=== PATIENT | female | born 1985 | race Caucasian/White ===

== ENCOUNTER → 2016-11-03 | Day surgery (SDC) | payer OTHER ==
[2016-10-31 09:40] VITALS: BMI 34.2
--- NOTE | 2016-11-02 08:32 | SC.ANESEVA ---
Anesthesia Eval & Plan ([facility]) - Providers Surgeon:: Hermes Mars - Medications/Allergies Allergies: Allergies codeine Allergy (Severe, Verified 12/02/13 22:45) Hives* Penicillins Allergy (Unknown, Verified 12/02/13 22:45) Edema-Generalized Home Medications: Home Medication List Ranitidine HCl [Zantac] 150 mg PO DAILY PRN 10/31/16 [History] Current Medication List: Reviewed - Focused Physical Exam NPO since: Since after Midnight Mallampati: Class II Thyromental Distance: Greater than 3 Neck: Full Range of Motion Dental: Normal - no significant findings Cardiovascular/Chest: Normal (RRR no mumurs or rubs.) Respiratory: Lungs clear. negative: Wheezing Any problems with anesthesia, including nausea and vomiting?: Yes ("HARD TO WAKE UP") Any relatives with a history of Malignant Hyperthermia?: No Other: Diagnoses CARPAL TUNNEL SYNDROME, RIGHT UPPER LIMB (11/03/16) Allergies Allergy/AdvReac Type Severity Reaction Status Date / Time codeine Allergy Severe Hives* Verified 12/02/13 22:45 Penicillins Allergy Unknown Edema-Gener Verified 12/02/13 22:45 alized Home Medications Medication Instructions Recorded Last Taken Type Ranitidine HCl [Zantac] 150 mg PO DAILY PRN 10/31/16 Unknown History Height and Weight Patient's height 5 ft 6.5 in Patient's weight 97.522 kg Weight (Calculated Kilograms) 97.522 BMI 34.2 - Anesthetic Plan Anesthesia Type: IV Regional (Pj), MAC ASA Class: 3 - Focused Review of Systems Cardiac History: No: Hx Cardiac Disorders HEENT: Yes: Hx Vision Problem (WEARS GLASSES), Other HEENT Problems Gastrointestinal: Yes: Hx Gastroesophageal Reflux Disease, Hx Gastrointestinal Disorders Neurological/Musculoskeletal: No: Hx Neurological Disorders Endocrine: Yes: Hx Non-Insulin Dependent Diabetes Smoking Status: Heavy tobacco smoker (5 or more cigarettes/day or daily pipe/ cigar)
[~2016-11-03] MED LIST: DEXAMETHASONE 4 MG/ML VIAL IV PRN; DIAZEPAM 5 MG TAB PO PRN; FENTANYL 100 MCG/2 ML VIAL IV PRN; FENTANYL 100 MCG/2 ML VIAL ONE; HYDROCODONE 5 MG/ACETAMIN 325 MG TAB PO PRN; KETOROLAC TROMETH 30 MG/ML VIAL IV PRN; KETOROLAC TROMETH 30 MG/ML VIAL ONE; LABETALOL 20 MG/4 ML SYRINGE IV PRN; LR 1,000 ML IV ONE; LR 1,000 ML IV SCH; MIDAZOLAM 2 MG/2 ML VIAL ONE; NS 1,000 ML IV SCH; NS 250 ML IV SCH; ONDANSETRON HCL 4 MG/2 ML VIAL IV PRN; PROPOFOL 200 MG/20 ML VIAL IV ONE; SCOPOLAMINE TRANSDERMAL PATCH TOP PRN; hydrALAZINE 20 MG/ML VIAL IV PRN
--- NOTE | 2016-11-03 08:29 | PCM.DCS92 ---
Discharge Outpatient Note Additional Instructions: Instructions given: 11/03/16 Prescriptions (given at the office) Diet as tolerated Discharge Instructions: Hand Surgery * Apply ice to the surgical site for 15-20 minutes out of each hour while awake for the first 2 days post-op, then apply as often as needed to control swelling and pain. * Keep Bandage clean and dry until after Physical Therapy appointment. * DO NOT lift more than 1-2 lbs with operative hand * Follow up in office as scheduled * Take stool softener while taking pain medication Follow up in office as scheduled - Call office for any additional concerns. ([phone]) Follow up with Physical therapy as scheduled
--- NOTE | 2016-11-03 08:51 | HIMOPRPT ---
DATE OF PROCEDURE: 11/03/16 PREOPERATIVE DIAGNOSIS: Carpal tunnel syndrome, right hand. POSTOPERATIVE DIAGNOSIS: Carpal tunnel syndrome, right hand. OPERATION: Carpal tunnel release, right hand. SURGEON: Hermes Mars MD. MD OPHTHALMOLOGIST: GERRI Noel ANESTHESIA: Blennerhassett block. DRAINS: None. COMPLICATIONS: None. BLOOD LOSS: None. DISPOSITION: Stable to recovery. PROCEDURE IN DETAIL: The patient was taken back to the surgical suite, where a forearm Pj block was placed on the right arm. The right hand and forearm was then prepped and draped in the standard sterile fashion and secured with a lead hand rodrigez. A 3-cm longitudinal incision was made in the thenar crease of the palm. The incision was carried down sharply through the skin and subcutaneous tissues, which were undermined proximally across the wrist crease. An Alms self- retaining retractor was placed. A Crile right angle retractor was placed. The palmar fascia was incised in line with skin incision. The transverse carpal ligament was identified along with superficial palmar arch, which was protected. The contents of the carpal tunnel were dissected from the undersurface of the transverse carpal ligament with a hemostat and a Mcdonald elevator. The distal half of the transverse carpal ligament was released with a 15 blade. The median nerve was initially inspected, then the proximal half of the transverse carpal ligament was released with a carpal tunnel knife. A complete release was confirmed. There was no gross pathology noted within the carpal tunnel. The motor branch of the median nerve was identified and noted to take a transligamentous course radially. The wound was irrigated with sterile saline solution and the skin was closed with simple interrupted 4-0 Prolene sutures. A sterile bulky hand dressing was applied. The tourniquet was deflated. The patient was taken to the recovery room in stable condition. The patient tolerated the procedure well without immediate complications.
[2016-11-03 09:17] VITALS: TEMP 97.3
[2016-11-03 09:40] VITALS: BP 100/69; PULSE 62
--- NOTE | 2016-11-03 09:43 | SC.ANESPOS ---
Post-Anesthesia Note LOC: Fully Awake Post-Anesthesia Assessment: Awake, Returned to Baseline, Hemodynamically Stable , Pain Control Adequate Phase I & II Recovery Complete: Yes Apparent Anesthesia Complication: No : N - Vital Signs Blood Pressure: 100/69 Pulse: 62 Resp Rate: 16 O2 Sat: 97 Temp: 97.3 F
== END ==
LOC: CPSC 06:51
PROVIDERS: ATTEND Orthopaedic Surgery
PROC: 01N50ZZ Release Median Nerve, Open Approach (ICD-10-PCS; principal; 2016-11-03 08:00)
DX: G56.01 Carpal tunnel syndrome, right upper limb (principal); K21.9 Gastro-esophageal reflux disease without esophagitis; E11.9 Type 2 diabetes mellitus without complications; F32.9 Major depressive disorder, single episode, unspecified; F41.9 Anxiety disorder, unspecified; M19.90 Unspecified osteoarthritis, unspecified site; F17.210 Nicotine dependence, cigarettes, uncomplicated; Z79.899 Other long term (current) drug therapy
CPT/HCPCS: 64721; J1885; J2250; J2704; J3010